=== PATIENT | female | born 1935 | race Caucasian/White ===

== ENCOUNTER 2019-02-27 16:06 | Observation (INO) ==
[2019-02-27 16:30] LABS: Hematocrit 37.9 % (37.0-47.0); Hemoglobin 12.9 gm/dL (12.5-16.0); Mean Cell Volume 84.6 fl (78-100); Mean Corpuscular Hemoglobin 28.8 pg (27-31); Neutrophil # 8.1 K/mm3 (1.3-6.0); Neutrophil % 75.4 % (42-75.0); Platelet Count 298 K/mm3 (150-450); Red Blood Count 4.48 M/mm3 (4.2-5.4); Red Cell Distribution Width 13.9 % (11.5-14.0); White Blood Count 10.7 K/mm3 (4.0-10.5)
[2019-02-27 16:49] LABS: BUN/Creatinine Ratio 15.4 (9.0-21.6)
[2019-02-27 16:50] LABS: Albumin * 3.8 gm/dl (3.4-5.0); Anion Gap 19.7 mmol/L (6.8-13.8); Bilirubin, Total 0.5 mg/dL (0.0-1.1); Ca. Corrected For Albumin 9.9 mg/dL (8.4-10.2); Calcium * 10.1 mg/dL (7.9-10.9); Carbon Dioxide 20.4 mmol/L (24-32.6); Potassium 3.1 mmol/L (3.4-4.6); Total Protein 7.7 gm/dL (6.2-8.2); Troponin I 0.027 ng/mL (0.00-0.10)
[2019-02-27] MEDS ORDERED: NORMAL SALINE 1,000 ML IV ONE (17:10)
[2019-02-27 17:27] LABS: INR 1.08 INR (0.92-1.08); Prothrombin Time (Patient) 10.7 Seconds (9.1-10.7)
[2019-02-27 18:31] LABS: Urine Bilirubin Negative (NEGATIVE); Urine Blood Negative /ul (NEGATIVE); Urine Ketone 15 mg/dL (NEGATIVE); Urine Nitrite Negative (NEGATIVE); Urine Protein 100 mg/dL (NEGATIVE); Urine Specific Gravity 1.025 SP.GR. (1.005-1.010); Urine Urobilinogen Normal (NORMAL); Urine pH 5.5 pH (5.0-7.0)
[2019-02-27 18:40] LABS: Urine Appearance Cloudy (CLEAR); Urine Bacteria 3+; Urine Color Dark Yellow; Urine Hyaline Cast 0-5 /LPF; Urine RBC 0-5 /hpf (0-5); Urine Renal Epithelial Cell Few - 1+ /hpf; Urine Transitional Epi Cells Few - 1+ /hpf; Urine WBC 25-50 /hpf (0-5)
[2019-02-27] MEDS ORDERED: cefTRIAXone SODIUM 1,000 MG/100 ML BAG IV ONE (18:59)
--- NOTE | 2019-02-27 19:01 | ERNOTE ---
Syncope ER HPI Date of Service: 02/27/19 Stated Complaint: syncope Time Seen by Provider: 02/27/19 16:50 Source: patient Exam Limitations: no limitations Immunizations: IMMUNIZATION HX Immunizations Up to Date Yes History of Influenza Vaccine Yes Hx Pneumococcal Vaccination Yes Allergies/Adverse Reactions: Allergies clopidogrel [From Plavix] Allergy (Verified 02/27/19 16:13) Home Medications: HOME MEDICATIONS Aspirin 325 mg PO DAILY 07/26/18 [Last Taken Unknown] Hydrochlorothiazide [Hydrodiuril] 25 mg PO DAILY 07/26/18 [Last Taken Unknown] Levothyroxine Sodium [Synthroid] 88 mcg PO DAILY 07/26/18 [Last Taken Unknown] Nifedipine 60 mg PO DAILY 07/26/18 [Last Taken Unknown] Omeprazole 20 mg PO DAILY 07/26/18 [Last Taken Unknown] Lisinopril 20 mg PO BID 02/27/19 [Last Taken Unknown] - History of Present Illness Narrative: This patient is an 83-year-old female arrived by ambulance for headache and passing out. The patient is here with a couple of other females. The histories from the patient and the other females. She said that she went out for lunch. She had some pain in her face when she was chewing. She went to therapy here at the hospital because him and numbness from prior stroke. She then had an episode that she describes as the feeling of an explosion in her brain. Her granddaughter took her home. She had 2 more explosion episodes on the way home. She said that she vomited once. She said that she passed out when she was getting out of the car. She indicates that she did not lose consciousness. It sounds like she had another episode where she almost passed out close in time to the first episode. She indicates that she was, and still is, very weak. She said that she could not breathe good after the headache and near syncopal episode. She said that she was gasping for air. She has a minor headache now. She said that she has had 2 strokes in the past. The first was 20 years ago and she does not really remember anything about it. She had another stroke about a year ago and says that her her whole body was weak. Review of Systems - Review of Systems Constitutional: Present: weakness, malaise. Absent: fever EYE: Present: blurred vision. Absent: eye pain, eye discharge, double vision ENT: Absent: ear pain, nose pain, nose congestion, nasal drainage, sore throat Respiratory: Present: shortness of breath. Absent: cough Cardiology: Present: syncope. Absent: chest pain, palpitations Gastrointestinal/Abdominal: Present: nausea, vomiting. Absent: diarrhea, constipation, abdominal pain, eating less, drinking less Genitourinary: Absent: frequency, pain, dysuria, hematuria Musculoskeletal: Present: joint pain Skin: Absent: rash Neurological: Present: headache, dizziness/light-headedness - She describes the dizziness says the sensation that she might pass out., weakness - Generalized, numbness, pre-existing deficit - Numbness. Absent: seizure Endocrine: Absent: unexplained weight gain, unexplained weight loss Hematologic/Lymphatic: Present: other - No active bleeding. Psych: Absent: anxiety, depressed Medical History (Last Reviewed 02/27/19 @ 23:50 by Chuck Moreno MD) Hx of breast cancer Hx of hysterectomy Hx of skin cancer, basal cell GERD (gastroesophageal reflux disease) Hypertension Hypothyroid Surgical History: Surgical History (Last Reviewed 02/27/19 @ 23:50 by Chuck Moreno MD) History of facial surgery Hx laparoscopic cholecystectomy Hx of mastectomy Family History: Family History (Last Updated 02/27/19 @ 20:10 by Annalisa Davis RN) Other No pertinent family history Social History: Preferred Language Yemeni No Social History Section defined Physical Exam - Physical Exam General Appearance: Present: alert, thin, other - This patient is an elderly female who is lying on the table with her eyes closed. She initially had a blanket around her head like a patricio and a washcloth crossed her face. She speaks very weakly. Head Exam: Present: normal inspection, no evidence of injury Eye Exam: Normal inspection: bilateral Ears, Nose, Throat: Present: normal ENT inspection, normal pharynx Neck: Present: normal inspection. Absent: carotid bruit, lymphadenopathy (R), lymphadenopathy (L) Respiratory: Present: no respiratory distress, normal breath sounds, no accessory muscle use, lungs clear Cardiovascular/Chest: Present: regular rate, rhythm, systolic murmur - At the apex, radiating to her abdomen. Gastrointestinal/Abdominal: Present: normal bowel sounds, nontender, nondistended, soft, no organomegaly Back Exam: Present: normal inspection Extremity Exam: Present: non-tender, no edema Neurological Exam: Present: alert, oriented, normal mood/affect - Flat or sickly affect., other - I could not appreciate any lateralizing neurologic weakness. The patient was not cooperative with the exam. When asked to lift her arms off of the table, she bent at the elbows. When her arms were lifted, they had symm etric drafts to a point. She made almost no effort to log hauler my hands. She made no effort to push/pull with her feet.. Absent: facial droop Skin Exam: Present: normal color, warm/dry Progress - Date and Time Seen: Date and Time: 02/27/19 19:00 She is feeling better. We discussed the labs and the x-rays. She said that she has episodes of dizziness at times. She said it feels like she might pass out. There have been no blood pressure or rhythm issues. The patient was given IV antibiotics. We discussed going home or the possibility of observation. The patient said that she was ready to go home. The nursing staff attempted to walk her, after antibiotics and before she went home. The patient said that she got to dizzy when she sat up and felt like she might pass out. She initially wanted to be transferred to [place], where her doctor practices. She quickly changed her mind and agreed stay here in [place]. Dr. Craig was contacted and agreed to with the patient. - Results and Orders Patient's Lab Results:: I have reviewed the patient's lab results. Results and Orders: Laboratory Tests 02/27/19 02/27/19 02/27/19 16:23 16:23 16:23 WBC 10.7 H Hgb 12.9 Hct 37.9 Plt Count 298 Immature Gran % (Auto) 0.50 H Neutrophils % 75.4 H Lymphocytes % 15.4 L Monocytes % 7.3 Eosinophils % 0.7 Basophils % 0.7 PT 10.7 INR (Anticoag Therapy) 1.08 Sodium 136 Plasma Sodium 137 Potassium 3.1 L Chloride 99 Carbon Dioxide 20.4 L Anion Gap 19.7 H BUN 27 H D Creatinine 1.75 H D Est GFR (Non-Af Amer) 29 L D BUN/Creatinine Ratio 15.4 Random Glucose 178 H Calcium 10.1 Calcium Adj for Albumin 9.9 Total Bilirubin 0.5 AST 16 ALT 17 L Alkaline Phosphatase 101 Troponin I 0.027 Total Protein 7.7 Albumin 3.8 Urine Color Urine Appearance Urine pH Ur Specific Only Urine Protein Urine Glucose (UA) Urine Ketones Urine Blood Urine Nitrate Urine Bilirubin Prot Sulfosalicylic Acd Urine Urobilinogen Ur Leukocyte Esterase Urine RBC Urine WBC Ur Epithelial Cells Ur Transition Epith Cell Ur Renal Epithelial Cell Urine Bacteria Hyaline Casts Coarse Granular Casts Urine Culture Comments 02/27/19 17:43 WBC Hgb Hct Plt Count Immature Gran % (Auto) Neutrophils % Lymphocytes % Monocytes % Eosinophils % Basophils % PT INR (Anticoag Therapy) Sodium Plasma Sodium Potassium Chloride Carbon Dioxide Anion Gap BUN Creatinine Est GFR (Non-Af Amer) BUN/Creatinine Ratio Random Glucose Calcium Calcium Adj for Albumin Total Bilirubin AST ALT Alkaline Phosphatase Troponin I Total Protein Albumin Urine Color Dark yellow Urine Appearance Cloudy Urine pH 5.5 Ur Specific Only 1.025 Urine Protein 100 H Urine Glucose (UA) Negative Urine Ketones 15 Urine Blood Negative Urine Nitrate Negative Urine Bilirubin Negative Prot Sulfosalicylic Acd 3+ H Urine Urobilinogen Normal Ur Leukocyte Esterase 75 H Urine RBC 0-5 Urine WBC 25-50 H Ur Epithelial Cells 5-10 H Ur Transition Epith Cell Few - 1+ H Ur Renal Epithelial Cell Few - 1+ H Urine Bacteria 3+ H Hyaline Casts 0-5 H Coarse Granular Casts 5-10 H Urine Culture Comments Culture to follow - Vital Signs Patient's Vital Signs:: I have reviewed the patient's vital signs. Vital Signs: Vital Signs 02/27/19 16:10 02/27/19 16:13 Temperature 37.4 C Pulse Rate 94 97 Respiratory Rate 18 Blood Pressure 146/53 O2 Sat by Pulse Oximetry 99 - EKG EKG #1 EKG read: Interp. by me EKG Comments: Normal sinus rhythm Rate [address] wave changes No old to compare. - X-Ray X-Ray #1 X-Ray: chest Interpretation: Interp. by me X-ray Comments: Elevated right hemidiaphragm. Lungs clear no cardiomegaly - CT/Ultrasound CT/Ultrasound Narrative: CT Head W/O * Date: 02/27/2019 5:05 PM Clinical Indication: Head trauma. Syncopal episode. Comparison: None. Technique: 5 mm axial tomographic images were obtained of the head without contrast. These were viewed on brain and bone windows. Individualized dose optimization technique was used for the performed procedure including automated exposure control, adjustment of the mA and/or kV according to patient size and/or the iterative reconstruction technique. Findings: Mild generalized cerebral and cerebellar volume loss. Mild nonspecific periventricular hypoattenuation, most commonly seen with chronic small vessel ischemic disease. Calcified atherosclerosis of the bilateral cavernous and paraclinoid internal carotid arteries and intracranial vertebral arteries. No intra- or extra-axial mass or fluid collection. No acute hemorrhage. The ventricles are normal in size, shape, and morphology. The david-white matter junction is normal. The basilar cisterns are patent. Mild mucosal thickening of the left sphenoid sinus. The visualized portions of the orbits and globes are normal. The mastoid air cells are clear. No aggressive osseous lesion or fracture. Impression: No acute intracranial process. Mild cerebral volume loss. Mild chronic small vessel ischemic disease. Mild mucosal thickening of the left sphenoid sinus. Electronically signed by Hazel Arango D.O.. - Progress/Reassessment Chief Complaint: Syncopal Episode Departure Clinical Impression: Generalized weakness, Syncope UTI (urinary tract infection) Qualifiers: Urinary tract infection type: acute cystitis Hematuria presence: without hematuria Qualified Code(s): N30.00 - Acute cystitis without hematuria - Departure Disposition: Still a patient Condition: Stable
[2019-02-27] MEDS ORDERED: ACETAMINOPHEN 325 MG TABLET PO PRN (19:59)
[2019-02-27] MEDS ORDERED: MECLIZINE HCL 25 MG TABLET PO PRN (19:59)
--- NOTE | 2019-02-27 23:32 | HP ---
Chief Complaint - Chief Complaint Date of Service: 02/27/19 Time of Service: 23:32 Chief Complaint: Altered mental status, headache, weakness History of Present Illness: Tea is an 83 yo female that presented to the [facility] ER with episode of headache, reporting 2 "explosions" in her head. She felt like passing out, she had an episode of vomiting and weakness. She denies loss of consciousness. She reports no recent change in medication, diet, activity, or travel. She does admit urinary frequency, more than usual. She denies pain with urination or fever/chills. Medical History (Updated 02/28/19 @ 00:02 by Chuck Moreno MD) GERD (gastroesophageal reflux disease) Hx of breast cancer Hx of hysterectomy Hx of skin cancer, basal cell Hypertension Hypothyroid Surgical History: Surgical History (Updated 02/27/19 @ 20:10 by Annalisa Davis RN) History of facial surgery Hx laparoscopic cholecystectomy Hx of mastectomy Family History: Family History (Updated 02/27/19 @ 20:10 by Annalisa Davis RN) Other No pertinent family history Social History: Patient Lives/Resources [facility] Utilized Preferred Language Bulgarian Do you have any yazidism or Yes: Jehoviah Witness cultural preference? Smoking Status Former smoker Have you smoked in the past 12 No months Do you dip or chew tobacco No No Social History Section defined Review Of Systems (GEN) - Review of Systems Generalized/Overall Review: Present: Weakness, Fatigue. Absent: Chills, Fever EENTM: Present: No Symptoms Reported Respiratory: Absent: Cough, Shortness of Breath Cardiac: Absent: Chest Pain, Edema, Palpitations Abdominal: Present: Nausea, Vomiting. Absent: Hematemesis, Abdominal Pain, Constipation, Diarrhea Genitourinary: Present: Frequency. Absent: Burning, Dysuria Musculoskeletal: Present: No Symptoms Reported Neurological: Present: Headache, Weakness. Absent: Numbness, Parasthesia, Tingling Skin: Present: No Symptoms Reported Endocrine: Present: No Symptoms Reported Immunizations: IMMUNIZATION HX Immunizations Up to Date Yes History of Influenza Vaccine Yes Hx Pneumococcal Vaccination Yes Allergies/Adverse Reactions: Allergies Allergy/AdvReac Type Severity Reaction Status Date / Time Iodinated Contrast- Oral and Allergy Intermediate Verified 02/28/19 09:30 IV Dye clopidogrel [From Plavix] Allergy Verified 02/27/19 16:13 Home Medications: HOME MEDICATIONS Aspirin 325 mg PO DAILY 07/26/18 [Last Taken Unknown] Hydrochlorothiazide [Hydrodiuril] 25 mg PO DAILY 07/26/18 [Last Taken Unknown] Levothyroxine Sodium [Synthroid] 88 mcg PO DAILY 07/26/18 [Last Taken Unknown] Nifedipine 60 mg PO DAILY 07/26/18 [Last Taken Unknown] Omeprazole 20 mg PO DAILY 07/26/18 [Last Taken Unknown] Lisinopril 20 mg PO BID 02/27/19 [Last Taken Unknown] Sulfamethoxazole/Trimethoprim [Bactrim Ds] 1 tab PO BID #10 tab 02/28/19 [Last Taken Unknown] Exam - Exam Vital Signs: Vital Signs - Last Taken Temp 36.6 C 02/27/19 20:40 Pulse 86 02/27/19 20:40 Resp 16 02/27/19 20:40 BP 146/51 02/27/19 20:40 Pulse Ox 98 02/27/19 20:40 Constitutional: Present: Alert, Oriented x3, Cooperative ENT Exam: Present: hearing grossly normal Eye Exam: bilateral eye: normal inspection Respiratory: Present: lungs clear, normal breath sounds Cardiovascular/Chest: Present: regular rate, rhythm, no murmur Peripheral Pulses: radial (R): 2+, radial (L): 2+ Abdomen: Present: Normal bowel sounds, soft, nontender, nondistended Skin Exam: Present: normal color, warm/dry, no cyanosis Lymphatic: Present: no adenopathy Neurologic: Present: no motor/sensory deficits, alert, normal mood/affect, oriented x 3. Absent: sensory deficit Appearance: Present: appropriate appearance, appropriate insight Eye contact: Present: cooperative, good eye contact, normal speech Thoughts: Present: normal thought pattern, no apparent hallucination Diagnostic Studies: Abnormal Lab Results 02/27/19 02/27/19 02/27/19 Range/Units 16:23 16:23 17:43 WBC 10.7 H (4.0-10.5) K/mm3 Immature Gran % (Auto) 0.50 H (0.001-0.429) % Immature Gran # (Auto) 0.05 H (0.000-0.0310) K/mm3 Neutrophils % 75.4 H (42-75.0) % Lymphocytes % 15.4 L (20-51) % Neutrophils # 8.1 H (1.3-6.0) K/mm3 Potassium 3.1 L (3.4-4.6) mmol/L Carbon Dioxide 20.4 L (24-32.6) mmol/L Anion Gap 19.7 H (6.8-13.8) mmol/L BUN 27 H D (3-23) mg/dL Creatinine 1.75 H D (0.4-1.4) mg/dL Est GFR (Non-Af Amer) 29 L D (60-130) mL/min Random Glucose 178 H (70-110) mg/dL ALT 17 L (19-67) U/L Urine Protein 100 H (NEGATIVE) mg/dL Prot Sulfosalicylic Acd 3+ H (0) mg/dL Ur Leukocyte Esterase 75 H (NEGATIVE) /ul Urine WBC 25-50 H (0-5) /hpf Ur Epithelial Cells 5-10 H (0-5) /hpf Ur Transition Epith Cell Few - 1+ H (NONE) /hpf Ur Renal Epithelial Cell Few - 1+ H (NONE) /hpf Urine Bacteria 3+ H (NONE) Hyaline Casts 0-5 H (NONE) /LPF Coarse Granular Casts 5-10 H (NONE) /LPF Laboratory Results WBC 10.7 K/mm3 (4.0-10.5) H 02/27/19 16:23 RBC 4.48 M/mm3 (4.2-5.4) 02/27/19 16:23 Hgb 12.9 gm/dL (12.5-16.0) 02/27/19 16:23 Hct 37.9 % (37.0-47.0) 02/27/19 16:23 MCV 84.6 fl (78-100) 02/27/19 16:23 MCH 28.8 pg (27-31) 02/27/19 16:23 MCHC 34.0 g/dl (32-36) 02/27/19 16:23 RDW 13.9 % (11.5-14.0) 02/27/19 16:23 Plt Count 298 K/mm3 (150-450) 02/27/19 16:23 MPV 9.0 fl (8-12.5) 02/27/19 16:23 Immature Gran % (Auto) 0.50 % (0.001-0.429) H 02/27/19 16:23 Immature Gran # (Auto) 0.05 K/mm3 (0.000-0.0310) H 02/27/19 16:23 Neutrophils % 75.4 % (42-75.0) H 02/27/19 16:23 Lymphocytes % 15.4 % (20-51) L 02/27/19 16:23 Monocytes % 7.3 % (0.0-9) 02/27/19 16:23 Eosinophils % 0.7 % (0.0-3.0) 02/27/19 16:23 Basophils % 0.7 % (0.0-1.0) 02/27/19 16:23 Nucleated RBC % 0.0 k/mm3 (0-1) 02/27/19 16:23 Neutrophils # 8.1 K/mm3 (1.3-6.0) H 02/27/19 16:23 Lymphocytes # 1.65 k/mm3 (1.5-3.5) 02/27/19 16:23 Monocytes # 0.8 k/mm3 (0.0-1.0) 02/27/19 16:23 Eosinophils # 0.1 k/mm3 (0.0-0.7) 02/27/19 16:23 Absolute Basophils 0.1 k/mm3 (0.0-0.1) 02/27/19 16:23 PT 10.7 Seconds (9.1-10.7) 02/27/19 16:23 INR (Anticoag Therapy) 1.08 INR (0.92-1.08) 02/27/19 16:23 Sodium 136 mmol/L (132-142) 02/27/19 16:23 Plasma Sodium 137 mmol/L (130-142) 02/27/19 16:23 Potassium 3.1 mmol/L (3.4-4.6) L 02/27/19 16:23 Chloride 99 mmol/L (97-106) 02/27/19 16:23 Carbon Dioxide 20.4 mmol/L (24-32.6) L 02/27/19 16:23 Anion Gap 19.7 mmol/L (6.8-13.8) H 02/27/19 16:23 BUN 27 mg/dL (3-23) H D 02/27/19 16:23 Creatinine 1.75 mg/dL (0.4-1.4) H D 02/27/19 16:23 Est GFR (Non-Af Amer) 29 mL/min (60-130) L D 02/27/19 16:23 BUN/Creatinine Ratio 15.4 (9.0-21.6) 02/27/19 16:23 Random Glucose 178 mg/dL (70-110) H 02/27/19 16:23 Calcium 10.1 mg/dL (7.9-10.9) 02/27/19 16:23 Calcium Adj for Albumin 9.9 mg/dL (8.4-10.2) 02/27/19 16:23 Total Bilirubin 0.5 mg/dL (0.0-1.1) 02/27/19 16:23 AST 16 U/L (0-48) 02/27/19 16:23 ALT 17 U/L (19-67) L 02/27/19 16:23 Alkaline Phosphatase 101 U/L (50-170) 02/27/19 16:23 Troponin I 0.027 ng/mL (0.00-0.10) 02/27/19 16:23 Total Protein 7.7 gm/dL (6.2-8.2) 02/27/19 16:23 Albumin 3.8 gm/dl (3.4-5.0) 02/27/19 16:23 Urine Color Dark yellow 02/27/19 17:43 Urine Appearance Cloudy (CLEAR) 02/27/19 17:43 Urine pH 5.5 pH (5.0-7.0) 02/27/19 17:43 Ur Specific [place] 1.025 SP.GR. (1.005-1.010) 02/27/19 17:43 Urine Protein 100 mg/dL (NEGATIVE) H 02/27/19 17:43 Urine Glucose (UA) Negative mg/dL (NEGATIVE) 02/27/19 17:43 Urine Ketones 15 mg/dL (NEGATIVE) 02/27/19 17:43 Urine Blood Negative /ul (NEGATIVE) 02/27/19 17:43 Urine Nitrate Negative (NEGATIVE) 02/27/19 17:43 Urine Bilirubin Negative mg/dl (NEGATIVE) 02/27/19 17:43 Prot Sulfosalicylic Acd 3+ mg/dL (0) H 02/27/19 17:43 Urine Urobilinogen Normal EU/dl (NORMAL) 02/27/19 17:43 Ur Leukocyte Esterase 75 /ul (NEGATIVE) H 02/27/19 17:43 Urine RBC 0-5 /hpf (0-5) 02/27/19 17:43 Urine WBC 25-50 /hpf (0-5) H 02/27/19 17:43 Ur Epithelial Cells 5-10 /hpf (0-5) H 02/27/19 17:43 Ur Transition Epith Cell Few - 1+ /hpf (NONE) H 02/27/19 17:43 Ur Renal Epithelial Cell Few - 1+ /hpf (NONE) H 02/27/19 17:43 Urine Bacteria 3+ (NONE) H 02/27/19 17:43 Hyaline Casts 0-5 /LPF (NONE) H 02/27/19 17:43 Coarse Granular Casts 5-10 /LPF (NONE) H 02/27/19 17:43 Urine Culture Comments Culture to follow 02/27/19 17:43 Assessment/Plan - Narrative Narrative: Tea is an 83 yo female with sudden explosion headache x 2 with reported altered mentation and weakness. There was no focal weakness on exam. Head CT in the ER was negative for acute bleed. Labs indicated possible UTI, and potential mild dehydration. No other significant abnormalities. Will plan to give fluids and culture urine. Will start antibiotic for suspected UTI with altered mentation. Will get brain MRI for further evaluation of acute explosion headache. Will admit to observation as she is overall feeling better at this time and expect one midnight hospitalization. - Assessment/Plan (1) Headache Problem: Acute Qualifiers: Headache type: unspecified Headache chronicity pattern: acute headache Intractability: not intractable Qualified Code(s): R51 - Headache (2) Pre-syncope Problem: Acute (3) Altered mental status Problem: Acute Qualifiers: Altered mental status type: unspecified Qualified Code(s): R41.82 - Altered mental status, unspecified
[2019-02-27] MEDS: POTASSIUM CHLORIDE 20 MEQ in 0.5 NORMAL SALINE 1,000 ML IV SCH (23:46)
[2019-02-28] MEDS ORDERED: MECLIZINE HCL 25 MG TABLET PO PRN (06:25)
[2019-02-28] MEDS ORDERED: ACETAMINOPHEN 325 MG TABLET PO PRN (06:26)
[2019-02-28 09:24] LABS: Anion Gap 13.6 mmol/L (6.8-13.8); BUN/Creatinine Ratio 17.2 (9.0-21.6); Bilirubin, Total 0.3 mg/dL (0.0-1.1); Ca. Corrected For Albumin 9.6 mg/dL (8.4-10.2); Calcium * 9.1 mg/dL (7.9-10.9); Carbon Dioxide 25.6 mmol/L (24-32.6); Potassium 3.2 mmol/L (3.4-4.6); Total Protein 6.4 gm/dL (6.2-8.2)
[2019-02-28] MEDS: POTASSIUM CHLORIDE 20 MEQ in 0.5 NORMAL SALINE 1,000 ML IV SCH (14:17)
--- NOTE | 2019-02-28 15:16 | DS ---
(1) UTI (urinary tract infection) Problem: Acute Qualifiers: Urinary tract infection type: acute cystitis Hematuria presence: without hematuria Qualified Code(s): N30.00 - Acute cystitis without hematuria (2) Generalized weakness Problem: Acute Description of Stay: Tea is an 83 yo female with altered mental status, weakness, and near syncope that presented to the [facility] ER for evaluation. Evaluation showed likely urinary tract infection, culture pending. Head CT showed no acute abnormality. She was admitted to observation and started on antibiotics. A brain MRI was obtained to rule out intracranial pathology, this was normal for her age. She continues to be weak but family agreed to home health. Will get PT through [facility] health and [facility]. Will treat with antibiotics. She is medically doing well to be discharged to home today. She will be set up with [facility] Home Health. She is physically taxed to get out of the home and is homebound. She needs home therapy for strengthening and medication management. Today's visit will serve as her face to face for home health qualification. Procedures Performed: none Results and Findings: Pending Mircobiology Results 02/27/19 17:43 Urine,Catheterized Urine Culture - Preliminary Ruling Out Pathogen Lab Pending Results 02/27/19 16:23: WBC 10.7 H, RBC 4.48, Hgb 12.9, Hct 37.9, MCV 84.6, MCH 28.8, MCHC 34.0, RDW 13.9, Plt Count 298, MPV 9.0, Immature Gran % (Auto) 0.50 H, Immature Gran # (Auto) 0.05 H, Neutrophils % 75.4 H, Lymphocytes % 15.4 L, Monocytes % 7.3, Eosinophils % 0.7, Basophils % 0.7, Nucleated RBC % 0.0, Neutrophils # 8.1 H, Lymphocytes # 1.65, Monocytes # 0.8, Eosinophils # 0.1, Absolute Basophils 0.1 02/27/19 16:23: Sodium 136, Plasma Sodium 137, Potassium 3.1 L, Chloride 99, Carbon Dioxide 20.4 L, Anion Gap 19.7 H, BUN 27 H D, Creatinine 1.75 H D, Est GFR (Non-Af Amer) 29 L D, BUN/Creatinine Ratio 15.4, Random Glucose 178 H, Calcium 10.1, Calcium Adj for Albumin 9.9, Total Bilirubin 0.5, AST 16, ALT 17 L, Alkaline Phosphatase 101, Troponin I 0.027, Total Protein 7.7, Albumin 3.8 02/27/19 16:23: PT 10.7, INR (Anticoag Therapy) 1.08 02/27/19 17:43: Urine Color Dark yellow, Urine Appearance Cloudy, Urine pH 5.5, Ur Specific [place] 1.025, Urine Protein 100 H, Urine Glucose (UA) Negative, Urine Ketones 15, Urine Blood Negative, Urine Nitrate Negative, Urine Bilirubin Negative, Prot Sulfosalicylic Acd 3+ H, Urine Urobilinogen Normal, Ur Leukocyte Esterase 75 H, Urine RBC 0-5, Urine WBC 25-50 H, Ur Epithelial Cells 5-10 H, Ur Transition Epith Cell Few - 1+ H, Ur Renal Epithelial Cell Few - 1+ H, Urine Bacteria 3+ H, Hyaline Casts 0-5 H, Coarse Granular Casts 5-10 H, Urine Culture Comments Culture to follow 02/28/19 09:00: Sodium 140, Plasma Sodium 141, Potassium 3.2 L, Chloride 104, Carbon Dioxide 25.6, Anion Gap 13.6, BUN 26 H, Creatinine 1.51 H, Est GFR (Non- Af Amer) 35 L D, BUN/Creatinine Ratio 17.2, Random Glucose 166 H, Calcium 9.1, Calcium Adj for Albumin 9.6, Total Bilirubin 0.3, AST 23, ALT 14 L, Alkaline Phosphatase 85, Total Protein 6.4, Albumin 3.0 L Discharge Location: Home Disposition: [facility] Agency: [facility] Home Health Condition: Stable Face to Face Encounter completed per CMS Guidelines: Yes Discharge Activity: Activity as tolerated Discharge Diet: General/regular food Referrals: Cortney Ghosh DO [Primary Care Provider] - One Week Problem Oriented Discharge Instructions to Patient/Family: Urinary Tract Infection, Adult, [id number] Additional Patient Instructions (free text): -Please make TCM appointment unless long term discharge. Thank you! Jennifer @ [phone]. [facility] HH new with PT. Please call report and fax orders upon discharge. Prescriptions (Any new or edited meds): Sulfamethoxazole/Trimethoprim [Bactrim Ds] 1 tab PO BID #10 tab Complete Home Medications List: Complete Home Medication List: Aspirin 325 mg PO DAILY 07/26/18 Hydrochlorothiazide [Hydrodiuril] 25 mg PO DAILY 07/26/18 Levothyroxine Sodium [Synthroid] 88 mcg PO DAILY 07/26/18 Nifedipine 60 mg PO DAILY 07/26/18 Omeprazole 20 mg PO DAILY 07/26/18 Lisinopril 20 mg PO BID 02/27/19 Sulfamethoxazole/Trimethoprim [Bactrim Ds] 1 tab PO BID #10 tab 02/28/19
[2019-02-28 16:41] VITALS: BP 91/31
== END 2019-02-28 16:41 | disposition home health service (06) ==
LOC: MS 16:06 → ER 16:06 → MS 20:45
PROVIDERS: ADMIT Family Medicine; ATTEND Family Medicine
CPT/HCPCS: 36415; 70450; 70553; 71010; 71045; 80053; 81001; 84484; 85025; 85610; 87077; 87086; 87186; 93005; 96365; 96366; 96367; 99285; A9576; G0378